=== PATIENT | male | born 1965 | race Caucasian/White ===

== ENCOUNTER → 2018-09-28 | Outpatient (CLI) | payer OTHER | LOC: RAD 14:09 | DX: N20.1 Calculus of ureter (principal); N20.0 Calculus of kidney ==

== ENCOUNTER → 2019-03-08 | Day surgery (SDC) | payer OTHER | LOC: MSO 08:43 | DX: Z12.11 Encounter for screening for malignant neoplasm of colon (principal); K63.5 Polyp of colon; K57.30 Diverticulosis of large intestine without perforation or abscess without bleeding; Z86.010 Personal history of colon polyps; K21.9 Gastro-esophageal reflux disease without esophagitis; E78.00 Pure hypercholesterolemia, unspecified; I10 Essential (primary) hypertension; K76.0 Fatty (change of) liver, not elsewhere classified; Z80.0 Family history of malignant neoplasm of digestive organs; Z90.79 Acquired absence of other genital organ(s) | CPT/HCPCS: 00813; J2704; J3010; J7120 ==

== ENCOUNTER → 2019-10-18 | Outpatient (CLI) | payer OTHER | LOC: RAD 08:18 | DX: R00.2 Palpitations (principal); R93.89 Abnormal findings on diagnostic imaging of other specified body structures | CPT/HCPCS: Q9967 ==

== ENCOUNTER 2022-09-04 14:52 | Outpatient (RCR) | payer OTHER | END 2022-09-17 | disposition home or self-care (01) | LOC: OT | DX: S50.902A Unspecified superficial injury of left elbow, initial encounter (principal); X58.XXXA Exposure to other specified factors, initial encounter ==